=== PATIENT | male | born 1960 | race Two or more races ===

== ENCOUNTER 2024-03-07 18:20 | Inpatient (IN) | payer MEDICAID, OTHER ==
[~2024-03-07] VITALS: Ht 172.7 cm; Wt 64.0 kg
[~2024-03-07 18:20] MED LIST: METFORMIN; NORCO
[2024-03-07] MEDS ORDERED: ATOR80TA PO (18:29)
[2024-03-07] MEDS ORDERED: METF-440 PO (18:29)
[2024-03-07] MEDS ORDERED: FAMO-108 PO (18:29)
[2024-03-07] MEDS ORDERED: MIRT-93 PO (18:29)
[2024-03-07] MEDS ORDERED: TRAZ-252 PO (18:29)
[2024-03-07] MEDS ORDERED: FOLI1TAB27 PO (18:29)
[2024-03-07] MEDS ORDERED: FURO20TA4 PO (18:29)
[2024-03-07] MEDS ORDERED: CLOP75TA33 PO (18:29)
[2024-03-07] MEDS ORDERED: GABA-532 PO (18:29)
[2024-03-07 19:25] LABS: BASOPHILS # (AUTO) 0.1 K/UL (0.0-0.2); BASOPHILS % (AUTO) 1.2 % (0.0-2.0); EOSINOPHILS % (AUTO) 0.2 % (0.0-7.0); HEMOGLOBIN 11.6 g/dL (12.5-16.3); LYMPHOCYTES # (AUTO) 2.5 K/uL (0.8-4.8); LYMPHOCYTES % (AUTO) 24.9 % (20.5-51.5); MEAN CORPUSCULAR HEMOGLOBIN 27.7 uug (23.8-33.4); MEAN CORPUSCULAR HGB CONC 31 g/dL (32.5-36.3); MEAN CORPUSCULAR VOLUME 88.5 fL (73.0-96.2); MONOCYTES # (AUTO) 0.7 K/uL (0.1-1.30); MONOCYTES % (AUTO) 6.6 % (0.0-11.0); NEUTROPHILS # (AUTO) 6.8 K/uL (1.8-8.9); NEUTROPHILS % (AUTO) 67.1 % (38.5-71.5); PLATELET COUNT (AUTO) 228 K/uL (152-348); RED BLOOD CELL COUNT(AUTO) 4.19 MIL/uL (4.06-5.63); RED CELL DISTRIBUTION WIDTH 16.1 % (12.1-16.2); WHITE BLOOD COUNT (AUTO) 10.1 K/uL (3.6-10.2)
[2024-03-07] MEDS: IV NORMAL SALINE 1000 ML BAG IV ONE ×2 (19:30→21:32)
[2024-03-07 19:31] LABS: DIFFERENTIAL COMMENT 1
[2024-03-07 19:32] LABS: CALCIUM 9.8 mg/dL (8.5-10.1); CREATININE 1.1 mg/dL (0.6-1.3); POTASSIUM 4.1 mmol/L (3.5-5.1)
[2024-03-07 19:38] LABS: ALBUMIN 4.4 g/dL (3.4-5.0); BILIRUBIN,DIRECT 0.2 mg/dL (0.0-0.2); BILIRUBIN,TOTAL 0.7 mg/dL (0.2-1.0); TOTAL PROTEIN, SERUM 9.4 g/dL (6.4-8.2)
[2024-03-07] MEDS: OXYCODONE/APAP 5-325 MG TABLET PO ONE (19:48)
[2024-03-07] MEDS ORDERED: OXYCODONE/APAP 5-325 MG TABLET ONE (19:49)
[2024-03-07] MEDS ORDERED: LORAZEPAM 0.5 MG TABLET ONE (20:28)
[2024-03-07] MEDS: LORAZEPAM 0.5 MG TABLET PO ONE (20:30)
[2024-03-07] MEDS: METHADONE HCL 10 MG TABLET PO ONE (21:19)
[2024-03-07] MEDS ORDERED: IV 1/2NS 1000 ML 1,000 ML IV PRN (21:30)
[2024-03-07] MEDS ORDERED: ONDANSETRON 4 MG/2 ML VIAL IV PRN (21:30)
[2024-03-07] MEDS ORDERED: REMEDY ESSENTIAL ZINC PASTE 113 GM TP PRN (21:30)
[2024-03-07] MEDS ORDERED: ACETAMINOPHEN 325 MG TABLET PO PRN (21:30)
[2024-03-07] MEDS: METOCLOPRAMIDE HCL 10 MG/2 ML VIAL IV ONE (21:32)
[2024-03-07] MEDS: MORPHINE SULFATE 4 MG/1 ML DISP.SYRIN IV ONE (21:33)
[2024-03-08] VITALS (8 sets, daily range): BP systolic 110–136; BP diastolic 67–90; TEMP 97.6–98.1; O2SAT 95–99
[2024-03-08] MEDS: FUROSEMIDE 40 MG/4 ML VIAL IV ONE ×2 (00:07→08:33)
[2024-03-08] MEDS ORDERED: CALCIUM GLUCONATE IV 2 GM in IV DEXTROSE 5% 250 ML IV ONE (00:30)
[2024-03-08 01:51] LABS: *BILIRUBIN,URIN NEGATIVE (NEGATIVE); *BLOOD, URINE NEGATIVE (NEGATIVE); *CLARITY,URINE CLEAR (CLEAR); *COLOR,URINE YELLOW (YELLOW); *KETONES,URINE NEGATIVE (NEGATIVE); *PROTEIN,URINE NEGATIVE (NEGATIVE); *UROBILINOGEN,URINE 0.2 E.U./dl (NORMAL); LEUKOCYTE ESTERASE ,URINE NEGATIVE (NEGATIVE); NITRITE, URINE NEGATIVE (NEGATIVE); UGLUCOSE NEGATIVE (NEGATIVE)
[2024-03-08 02:30] LABS: *AMPHETAMINE, URINE NEGATIVE (NEGATIVE); *BARBITURATE, URINE NEGATIVE (NEGATIVE); *BENZODIAZEPINE, URINE NEGATIVE (NEGATIVE); *CANNABINOID, URINE NEGATIVE (NEGATIVE); *COCCAINE, URINE NEGATIVE (NEGATIVE); *OPIATE, URINE POSITIVE (NEGATIVE); *PHENCYCLIDINE SCREEN,URINE NEGATIVE (NEGATIVE); FENTANYL, URINE NEGATIVE (NEGATIVE)
[2024-03-08] MEDS: OXYCODONE/APAP 5-325 MG TABLET PO PRN (03:07)
[2024-03-08] MEDS: MORPHINE SULFATE 2 MG/1 ML DISP.SYRIN IV PRN (04:01)
[2024-03-08] MEDS: PANTOPRAZOLE SODIUM 40 MG TABLET.DR PO SCH (06:15)
[2024-03-08] MEDS: LORAZEPAM 1 MG TABLET PO PRN (06:15)
[2024-03-08] MEDS: CLOPIDOGREL 75 MG TABLET PO SCH (08:32)
[2024-03-08] MEDS: METFORMIN HCL 500 MG TABLET PO SCH (08:32)
[2024-03-08] MEDS: GABAPENTIN 100 MG CAPSULE PO SCH (08:32)
[2024-03-08] MEDS: FOLIC ACID 1 MG TABLET PO SCH (08:33)
[2024-03-08] MEDS: levoFLOXacin 750MG/D5W 750 MG in PREMIXED 1 EACH IV SCH (13:13)
[2024-03-08] MEDS ORDERED: MELA3CAP2 PO (14:34)
[2024-03-08] MEDS ORDERED: MIDO5TAB5 PO (14:34)
[2024-03-08] MEDS ORDERED: METH-815 PO (14:34)
[2024-03-08] MEDS ORDERED: LACT1TAB12 PO (14:34)
[2024-03-08] MEDS ORDERED: ZINC220T4 PO (14:34)
[2024-03-08] MEDS ORDERED: FERR325T6 PO (14:34)
[2024-03-08] MEDS ORDERED: NALO4SPR NS (14:34)
[2024-03-08] MEDS ORDERED: INSU100V SQ (14:34)
[2024-03-08] MEDS ORDERED: ACET325T53 PO (14:34)
[2024-03-08] MEDS ORDERED: SENN8.6T19 PO (14:34)
[2024-03-08] MEDS ORDERED: CHOL500062 PO (14:34)
[2024-03-08] MEDS ORDERED: ONDA4TAB5 PO (14:34)
[2024-03-08] MEDS ORDERED: LOPE2TAB25 PO (14:34)
[2024-03-08] MEDS ORDERED: MULT-594 PO (14:34)
[2024-03-08] MEDS ORDERED: NITR0.4T SL (14:34)
[2024-03-08] MEDS ORDERED: POLY17PO4 PO (14:34)
[2024-03-08] MEDS ORDERED: HYDR-894 PO (14:34)
[2024-03-08] MEDS ORDERED: ASCO500C18 PO (14:34)
[2024-03-08] MEDS ORDERED: CHLO473M5 MM (14:34)
[2024-03-08] MEDS ORDERED: BISA10SU61 RC (14:34)
[2024-03-08] MEDS: FUROSEMIDE 40 MG/4 ML VIAL IV SCH (17:09)
[2024-03-08] MEDS: MIRTAZAPINE 15 MG TABLET PO SCH (17:11)
[2024-03-08] MEDS: TRAZODONE 50 MG TABLET PO SCH (17:11)
[2024-03-08] MEDS: ATORVASTATIN 40 MG TABLET PO SCH (21:09)
[2024-03-08] MEDS: PIPERACILLIN SODIUM/TAZOBACTAM 3.375 G in IV DEXTROSE 5% 50 ML IV SCH (21:21)
[2024-03-09] VITALS (8 sets, daily range): BP systolic 94–113; BP diastolic 50–76; TEMP 97.6–98.5; O2SAT 95–98
[2024-03-09 07:09] LABS: BASOPHILS % (AUTO) 0.5 % (0.0-2.0); EOSINOPHILS # (AUTO) 0.3 K/uL (0.0-0.7); EOSINOPHILS % (AUTO) 3.3 % (0.0-7.0); HEMATOCRIT 31.9 % (36.7-47.1); HEMOGLOBIN 10.5 g/dL (12.5-16.3); LYMPHOCYTES # (AUTO) 2.6 K/uL (0.8-4.8); LYMPHOCYTES % (AUTO) 28.5 % (20.5-51.5); MEAN CORPUSCULAR HEMOGLOBIN 28.5 uug (23.8-33.4); MEAN CORPUSCULAR HGB CONC 33 g/dL (32.5-36.3); MEAN CORPUSCULAR VOLUME 86.7 fL (73.0-96.2); MONOCYTES # (AUTO) 0.6 K/uL (0.1-1.30); MONOCYTES % (AUTO) 6.5 % (0.0-11.0); NEUTROPHILS # (AUTO) 5.5 K/uL (1.8-8.9); NEUTROPHILS % (AUTO) 61.2 % (38.5-71.5); PLATELET COUNT (AUTO) 210 K/uL (152-348); RED BLOOD CELL COUNT(AUTO) 3.68 MIL/uL (4.06-5.63); RED CELL DISTRIBUTION WIDTH 16.1 % (12.1-16.2)
[2024-03-09 07:17] LABS: DIFFERENTIAL COMMENT 1
[2024-03-09 07:20] LABS: CALCIUM 8.5 mg/dL (8.5-10.1); MAGNESIUM 1.7 mg/dL (1.8-2.4); PHOSPHOROUS 3.5 mg/dL (2.5-4.9); POTASSIUM 3.1 mmol/L (3.5-5.1)
[2024-03-09] MEDS ORDERED: POTASSIUM CHLORIDE 20 MEQ POWDER PACKET GT ONE (09:30)
[2024-03-09] MEDS: POTASSIUM CHLORIDE 20 MEQ POWDER PACKET PO ONE (10:16)
[2024-03-09] MEDS: SPIRONOLACTONE 25 MG TABLET PO SCH (10:18)
[2024-03-09] MEDS: POTASSIUM CHLORIDE 50 ML IV SCH (10:20)
[2024-03-09] MEDS: MAGNESIUM OXIDE 400 MG TABLET PO ONE (13:45)
[2024-03-10] VITALS (9 sets, daily range): BP systolic 94–109; BP diastolic 61–80; TEMP 97.7–98.8; O2SAT 95–100
[2024-03-10] MEDS: PIPERACILLIN SODIUM/TAZOBACTAM 3.375 G in IV DEXTROSE 5% 100 ML IV SCH (21:12)
[2024-03-11 07:27] VITALS: BP 113/80; TEMP 98.2; O2SAT 98
[2024-03-11 07:34] LABS: BASOPHILS # (AUTO) 0.1 K/UL (0.0-0.2); BASOPHILS % (AUTO) 0.9 % (0.0-2.0); EOSINOPHILS # (AUTO) 0.4 K/uL (0.0-0.7); EOSINOPHILS % (AUTO) 4.7 % (0.0-7.0); HEMATOCRIT 39.1 % (36.7-47.1); HEMOGLOBIN 12.6 g/dL (12.5-16.3); LYMPHOCYTES # (AUTO) 2.7 K/uL (0.8-4.8); LYMPHOCYTES % (AUTO) 29.4 % (20.5-51.5); MEAN CORPUSCULAR HEMOGLOBIN 27.7 uug (23.8-33.4); MEAN CORPUSCULAR HGB CONC 32 g/dL (32.5-36.3); MEAN CORPUSCULAR VOLUME 86.3 fL (73.0-96.2); MONOCYTES # (AUTO) 0.7 K/uL (0.1-1.30); MONOCYTES % (AUTO) 7.6 % (0.0-11.0); NEUTROPHILS # (AUTO) 5.3 K/uL (1.8-8.9); NEUTROPHILS % (AUTO) 57.4 % (38.5-71.5); PLATELET COUNT (AUTO) 250 K/uL (152-348); RED BLOOD CELL COUNT(AUTO) 4.54 MIL/uL (4.06-5.63); RED CELL DISTRIBUTION WIDTH 15.8 % (12.1-16.2); WHITE BLOOD COUNT (AUTO) 9.3 K/uL (3.6-10.2)
[2024-03-11 07:58] LABS: DIFFERENTIAL COMMENT 1
[2024-03-11 08:02] LABS: CALCIUM 9.3 mg/dL (8.5-10.1); CREATININE 0.8 mg/dL (0.6-1.3); MAGNESIUM 1.6 mg/dL (1.8-2.4); PHOSPHOROUS 4.5 mg/dL (2.5-4.9)
[2024-03-11 08:06] LABS: POTASSIUM 3.6 mmol/L (3.5-5.1)
[2024-03-11 11:17] VITALS: BP 95/64; TEMP 98; O2SAT 97
[2024-03-11] MEDS: MAGNESIUM OXIDE 400 MG TABLET PO ONE (13:40)
[2024-03-11] MEDS: HYDROCODONE/APAP 5-325MG TABLET PO PRN (13:45)
[2024-03-11 15:17] VITALS: BP 100/70; TEMP 97.3; O2SAT 97
[2024-03-11 20:00] VITALS: BP 109/71; TEMP 98.3; O2SAT 98
[2024-03-11 20:28] VITALS: O2SAT 96
[2024-03-12] VITALS: BP 96/65; TEMP 97.2; O2SAT 95
[2024-03-12 06:10] VITALS: BP 105/72; TEMP 98.6; O2SAT 97
[2024-03-12 08:08] VITALS: BP 110/70; TEMP 98.7; O2SAT 98
[2024-03-12 11:50] VITALS: BP 102/64; TEMP 97.8; O2SAT 98
[2024-03-12] MEDS ORDERED: FURO-151 PO (14:00)
[2024-03-12 14:03] VITALS: O2SAT 98
[2024-03-12 15:34] VITALS: BP 95/62; TEMP 97.7; O2SAT 97
[2024-03-12] MEDS ORDERED: HYDR-3980 PO (17:01)
[2024-03-14 22:36] VITALS: O2SAT 95; O2SAT 98
== END 2024-03-12 17:30 | disposition home or self-care (01) | DRG 194 ==
LOC: ER 18:21 → TELE3 21:15 → MEDSURG3 03-12 10:25
PROVIDERS: ADMIT Nurse Practitioner Family
PROC: 05HB33Z Insertion of Infusion Device into Right Basilic Vein, Percutaneous Approach (ICD-10-PCS; principal; 2024-03-10)
DX: I11.0 Hypertensive heart disease with heart failure (principal); J96.01 Acute respiratory failure with hypoxia; I21.4 Non-ST elevation (NSTEMI) myocardial infarction; I42.7 Cardiomyopathy due to drug and external agent; E86.0 Dehydration; Z95.1 Presence of aortocoronary bypass graft; I50.23 Acute on chronic systolic (congestive) heart failure; F11.20 Opioid dependence, uncomplicated; I25.10 Atherosclerotic heart disease of native coronary artery without angina pectoris; F15.91 Other stimulant use, unspecified, in remission; R55 Syncope and collapse; I25.5 Ischemic cardiomyopathy; R20.2 Paresthesia of skin; G89.29 Other chronic pain; Z79.02 Long term (current) use of antithrombotics/antiplatelets; Z79.4 Long term (current) use of insulin; E11.9 Type 2 diabetes mellitus without complications; E78.5 Hyperlipidemia, unspecified; Z88.6 Allergy status to analgesic agent; Z79.899 Other long term (current) drug therapy; F32.A Depression, unspecified; K21.9 Gastro-esophageal reflux disease without esophagitis; Z79.84 Long term (current) use of oral hypoglycemic drugs
CPT/HCPCS: 36415; 71045; 83735; 84100; 84484; 85025; 93005; 93307; G0378; J0610; J1940; J1956; J2270; J2543; J2765; J3480; J7040; J7050

== ENCOUNTER 2024-03-16 05:39 | Emergency (ER) | payer MEDICAID ==
[~2024-03-16] VITALS: Ht 172.7 cm; Wt 65.8 kg
[~2024-03-16 05:39] MED LIST changes: +ACET325T53 PO; +ASCO500C18 PO; +ATOR80TA PO; +BISA10SU61 RC; +CHLO473M5 MM; +CHOL500062 PO; +CLOP75TA33 PO; +FAMO-108 PO; +FERR325T6 PO; +FOLI1TAB27 PO; +FURO-151 PO; +GABA-532 PO; +HYDR-894 PO; +INSU100V SQ; +LACT1TAB12 PO; +LOPE2TAB25 PO; +MELA3CAP2 PO; +METF-440 PO; -METFORMIN; +MIDO5TAB5 PO; +MIRT-93 PO; +MULT-594 PO; +NALO4SPR NS; +NITR0.4T SL; -NORCO; +ONDA4TAB5 PO; +POLY17PO4 PO; +SENN8.6T19 PO; +TRAZ-252 PO; +ZINC220T4 PO
[2024-03-16] MEDS ORDERED: METOPROLOL TARTRATE 5 MG/5 ML VIAL IVP ONE ×2 (06:00→06:03)
[2024-03-16] MEDS: IV NORMAL SALINE 1000 ML BAG IV ONE (06:00)
[2024-03-16] MEDS: LABETALOL HCL 100 MG/20 ML VIAL IV ONE (06:15)
[2024-03-16 07:37] LABS: AMMONIA 12 umol/L (11-32)
[2024-03-16 07:39] LABS: BASOPHILS # (AUTO) 0.1 K/UL (0.0-0.2); BASOPHILS % (AUTO) 1.2 % (0.0-2.0); DIFFERENTIAL COMMENT 0; EOSINOPHILS # (AUTO) 0.1 K/uL (0.0-0.7); EOSINOPHILS % (AUTO) 0.9 % (0.0-7.0); HEMOGLOBIN 10.8 g/dL (12.5-16.3); LYMPHOCYTES # (AUTO) 1.8 K/uL (0.8-4.8); LYMPHOCYTES % (AUTO) 19.8 % (20.5-51.5); MEAN CORPUSCULAR HEMOGLOBIN 28.1 uug (23.8-33.4); MEAN CORPUSCULAR HGB CONC 33 g/dL (32.5-36.3); MEAN CORPUSCULAR VOLUME 85.8 fL (73.0-96.2); MONOCYTES # (AUTO) 0.7 K/uL (0.1-1.30); MONOCYTES % (AUTO) 7.1 % (0.0-11.0); NEUTROPHILS # (AUTO) 6.5 K/uL (1.8-8.9); PLATELET COUNT (AUTO) 183 K/uL (152-348); RED BLOOD CELL COUNT(AUTO) 3.84 MIL/uL (4.06-5.63); RED CELL DISTRIBUTION WIDTH 15.6 % (12.1-16.2); WHITE BLOOD COUNT (AUTO) 9.2 K/uL (3.6-10.2)
[2024-03-16 07:44] LABS: ACETAMINOPHEN < 2.0 ug/mL (10-30)
[2024-03-16 07:47] LABS: ETHANOL < 3 MG/DL (0-10)
[2024-03-16 07:56] LABS: CALCIUM 9.3 mg/dL (8.5-10.1); CARBON DIOXIDE 27 mmol/L (21-32); CHLORIDE 97 mmol/L (98-107); CREATININE 1.2 mg/dL (0.6-1.3); GLUCOSE 215 mg/dL (74-106); POTASSIUM 3.8 mmol/L (3.5-5.1); SODIUM SERUM 134 mmol/L (136-145); UREA NITROGEN, BLOOD 31 mg/dL (7-18)
[2024-03-16 08:02] LABS: *BILIRUBIN,URIN NEGATIVE (NEGATIVE); *BLOOD, URINE NEGATIVE (NEGATIVE); *CLARITY,URINE CLEAR (CLEAR); *COLOR,URINE YELLOW (YELLOW); *KETONES,URINE TRACE (NEGATIVE); *PROTEIN,URINE 2+ (NEGATIVE); *UROBILINOGEN,URINE 0.2 E.U./dl (NORMAL); LEUKOCYTE ESTERASE ,URINE NEGATIVE (NEGATIVE); NITRITE, URINE NEGATIVE (NEGATIVE); PH,URINE 5.5 (5.0-8.0); UGLUCOSE NEGATIVE (NEGATIVE)
[2024-03-16 08:09] LABS: ALANINE AMINOTRANSFERASE 28 U/L (16-63); ALBUMIN 3.6 g/dL (3.4-5.0); ALKALINE PHOSPHATASE 82 U/L (50-136); ASPARTATE AMINOTRANSFERASE 22 U/L (15-37); BILIRUBIN,DIRECT 0.3 mg/dL (0.0-0.2); BILIRUBIN,TOTAL 0.7 mg/dL (0.2-1.0); NT-PRO BNP 18792 pg/mL (0-125)
[2024-03-16 08:14] LABS: *AMPHETAMINE, URINE POSITIVE (NEGATIVE); *BARBITURATE, URINE NEGATIVE (NEGATIVE); *BENZODIAZEPINE, URINE NEGATIVE (NEGATIVE); *CANNABINOID, URINE NEGATIVE (NEGATIVE); *COCCAINE, URINE NEGATIVE (NEGATIVE); *OPIATE, URINE POSITIVE (NEGATIVE); *PHENCYCLIDINE SCREEN,URINE NEGATIVE (NEGATIVE); FENTANYL, URINE POSITIVE (NEGATIVE)
[2024-03-16] MEDS ORDERED: REMEDY ESSENTIAL ZINC PASTE 113 GM TP PRN (10:00)
[2024-03-16] MEDS ORDERED: DEXTROSE 50% 50 ML DISP.SYRIN IV PRN (10:00)
[2024-03-16] MEDS ORDERED: MAGNESIUM HYDROXIDE 30 ML LIQUID UDC PO PRN (10:00)
[2024-03-16] MEDS ORDERED: ACETAMINOPHEN 325 MG TABLET PO PRN (10:00)
[2024-03-16] MEDS ORDERED: INSULIN REGULAR, HUMAN 300 UNITS/3 ML VIAL SQ PRN (10:00)
[2024-03-16] MEDS ORDERED: Medication Not On Formulary EA (Melatonin 3 MG) PO PRN (10:00)
[2024-03-16] MEDS ORDERED: ONDANSETRON 4 MG/2 ML VIAL IV PRN (10:00)
[2024-03-16] MEDS ORDERED: ONDANSETRON 4 MG/2 ML VIAL ONE (10:06)
[2024-03-16] MEDS ORDERED: MORPHINE SULFATE 4 MG/1 ML DISP.SYRIN ONE (10:06)
[2024-03-16] MEDS: FUROSEMIDE 40 MG/4 ML VIAL IV ONE (10:12)
[2024-03-16] MEDS: ONDANSETRON 4 MG/2 ML VIAL IV ONE (10:13)
[2024-03-16] MEDS: MORPHINE SULFATE 4 MG/1 ML DISP.SYRIN IV ONE (10:13)
[2024-03-16] MEDS ORDERED: diphenhydrAMINE 50 MG/1 ML VIAL ONE (10:36)
[2024-03-16] MEDS: diphenhydrAMINE 50 MG/1 ML VIAL IV ONE (10:39)
[2024-03-16] MEDS ORDERED: IOHEXOL 350 100 ML INFUS..BTL ONE (11:36)
[2024-03-16] MEDS ORDERED: IV NORMAL SALINE 250 ML IV ONE (11:36)
[2024-03-16] MEDS ORDERED: SWABABLE VALVE TRANSFER SET EA MC ONE (11:36)
[2024-03-16] MEDS: BLOOD SUGAR DIAGNOSTIC 1 EACH STRIP VI SCH (12:26)
[2024-03-16] MEDS: INSULIN REGULAR, HUMAN 1000 UNIT/10 ML VIAL SQ PRN (12:28)
[2024-03-16] MEDS ORDERED: INSULIN REGULAR, HUMAN 1000 UNIT/10 ML VIAL ONE (12:30)
[2024-03-16] MEDS: GABAPENTIN 100 MG CAPSULE PO SCH (14:35)
[2024-03-16 15:13] LABS: BACTERIA,URINE FEW /HPF (NONE SEEN); RBC,URINE 0-3 /HPF (0-3); SQUAMOUS EPITHELIAL CELL,UR FEW /HPF (NONE SEEN); WBC,URINE 0-3 /HPF (0-3)
[2024-03-16] MEDS ORDERED: MELATONIN 3 MG TABLET PO PRN (15:30)
[2024-03-16] MEDS ORDERED: ASCORBIC ACID 500 MG TABLET PO SCH (17:00)
[2024-03-16] MEDS ORDERED: Medication Not On Formulary EA (Ascorbic Acid (Vitamin C) 500 MG) PO SCH (17:00)
[2024-03-16 17:39] VITALS: BP 106/64; TEMP 98.3; O2SAT 95
[2024-03-16] MEDS ORDERED: ATORVASTATIN 40 MG TABLET PO SCH (21:00)
[2024-03-16] MEDS ORDERED: TRAZODONE 50 MG TABLET PO SCH (21:00)
[2024-03-16] MEDS ORDERED: MIRTAZAPINE 15 MG TABLET PO SCH (21:00)
[2024-03-16] MEDS ORDERED: Medication Not On Formulary EA (Atorvastatin Calcium (Lipitor) 80 MG) PO SCH (21:00)
[2024-03-17] MEDS ORDERED: CHOLECALCIFEROL 1,000 UNIT TABLET PO SCH (09:00)
[2024-03-17] MEDS ORDERED: Medication Not On Formulary EA (Lactobacillus Acidophilus (Acidophilus) 1 TAB) PO SCH (09:00)
[2024-03-17] MEDS ORDERED: MIRALAX 17 GM POWD.PACK PO SCH (09:00)
[2024-03-17] MEDS ORDERED: ZINC SULFATE 220 MG CAPSULE PO SCH (09:00)
[2024-03-17] MEDS ORDERED: Medication Not On Formulary EA (Multivitamins (Multivitamin) 1 TAB) PO SCH (09:00)
[2024-03-17] MEDS ORDERED: Medication Not On Formulary EA (Cholecalciferol (Vitamin D3) (Vitamin D3) 5,000 UNIT) PO SCH (09:00)
[2024-03-17] MEDS ORDERED: Medication Not On Formulary EA (Ferrous Sulfate 325 MG) PO SCH (09:00)
[2024-03-17] MEDS ORDERED: FAMOTIDINE 20 MG TABLET PO SCH (09:00)
[2024-03-17] MEDS ORDERED: ACIDOPHILUS/BULGARICUS CHEW TAB PO SCH (09:00)
[2024-03-17] MEDS ORDERED: MULTIVITAMINS,THERAPEUTIC TABLET PO SCH (09:00)
[2024-03-17] MEDS ORDERED: SENNOSIDES 1 TABLET PO SCH (09:00)
[2024-03-17] MEDS ORDERED: FOLIC ACID 1 MG TABLET PO SCH (09:00)
[2024-03-17] MEDS ORDERED: CLOPIDOGREL 75 MG TABLET PO SCH (09:00)
[2024-03-17] MEDS ORDERED: FERROUS SULFATE 325 MG TABEC PO SCH (09:00)
== END 2024-03-16 17:41 | disposition left against medical advice (07) ==
LOC: ER 05:40
DX: T50.901A Poisoning by unspecified drugs, medicaments and biological substances, accidental (unintentional), initial encounter (principal); I21.A1 Myocardial infarction type 2; I50.9 Heart failure, unspecified; F19.10 Other psychoactive substance abuse, uncomplicated; J44.1 Chronic obstructive pulmonary disease with (acute) exacerbation; K21.9 Gastro-esophageal reflux disease without esophagitis; E11.9 Type 2 diabetes mellitus without complications; Z98.890 Other specified postprocedural states; Z79.899 Other long term (current) drug therapy; Z79.1 Long term (current) use of non-steroidal anti-inflammatories (NSAID); Z79.84 Long term (current) use of oral hypoglycemic drugs; Z20.822 Contact with and (suspected) exposure to COVID-19; Z88.1 Allergy status to other antibiotic agents; Y92.89 Other specified places as the place of occurrence of the external cause
CPT/HCPCS: 80076; 80048; 81001; 82140; 82962 ×2; 83880; 85025; 85379; 85730; 87426; 87040 ×2; 84484 ×3; 36415; 93005; 71045; 73020 ×2; 71275; 93971; 99291; 96361; 96374; 96375; 96372; 83605 ×2; 87086; 80299; 80320; 80307; J1200; J1940; J3490; J2405; Q9967; J2270; J1815; J7040 ×3; A4606; A4663; G0480

== ENCOUNTER 2024-06-15 13:32 | Emergency (ER) | payer MEDICAID ==
[~2024-06-15] VITALS: Ht 175.3 cm; Wt 65.8 kg
[2024-06-15] MEDS ORDERED: HYDROMORPHONE 1 MG/1 ML DISP.SYRIN ONE (15:55)
[2024-06-15] MEDS ORDERED: ONDANSETRON ODT 4 MG TAB.RAPDIS ONE (15:55)
[2024-06-15] MEDS ORDERED: HYDROMORPHONE 2 MG/1 ML DISP.SYRIN ONE (15:55)
[2024-06-15] MEDS: ONDANSETRON ODT 4 MG TAB.RAPDIS SL ONE (15:59)
[2024-06-15] MEDS: HYDROMORPHONE 1 MG/1 ML DISP.SYRIN IM ONE (15:59)
[2024-06-15] MEDS ORDERED: SILVER SULFADIAZINE 1% CREAM 50 GM TP ONE (16:09)
[2024-06-15] MEDS: SILVER SULFADIAZINE 1% CREAM 50 GM TP ONE (16:17)
[2024-06-15 17:07] LABS: CREATININE 1.2 mg/dL (0.6-1.3)
[2024-06-15 17:09] LABS: MAGNESIUM 1.7 mg/dL (1.8-2.4)
[2024-06-15] MEDS: IV NS 1000 ML 1,000 ML IV ONE ×2 (20:54→21:53)
[2024-06-15] MEDS ORDERED: OXYCODONE HCL 5 MG TABLET ONE (20:55)
[2024-06-15] MEDS: OXYCODONE HCL 5 MG TABLET PO ONE (20:57)
[2024-06-15] MEDS ORDERED: MAGNESIUM SULFATE/D5W 200 ML ONE (21:52)
[2024-06-15] MEDS: MAGNESIUM SULFATE/D5W 100 ML IV SCH (21:57)
[2024-06-15 22:34] LABS: BASOPHILS # (AUTO) 0.1 K/UL (0.0-0.2); BASOPHILS % (AUTO) 0.7 % (0.0-2.0); EOSINOPHILS % (AUTO) 0.4 % (0.0-7.0); HEMATOCRIT 37.2 % (36.7-47.1); LYMPHOCYTES # (AUTO) 1.4 K/uL (0.8-4.8); LYMPHOCYTES % (AUTO) 15.1 % (20.5-51.5); MEAN CORPUSCULAR HEMOGLOBIN 27.4 uug (23.8-33.4); MEAN CORPUSCULAR HGB CONC 32 g/dL (32.5-36.3); MONOCYTES # (AUTO) 1.1 K/uL (0.1-1.30); MONOCYTES % (AUTO) 11.5 % (0.0-11.0); NEUTROPHILS # (AUTO) 6.9 K/uL (1.8-8.9); NEUTROPHILS % (AUTO) 72.3 % (38.5-71.5); PLATELET COUNT (AUTO) 234 K/uL (152-348); RED BLOOD CELL COUNT(AUTO) 4.38 MIL/uL (4.06-5.63); RED CELL DISTRIBUTION WIDTH 19.2 % (12.1-16.2); WHITE BLOOD COUNT (AUTO) 9.5 K/uL (3.6-10.2)
[2024-06-15 23:08] LABS: ERYTHROCYTE SEDIMENTATION RATE 12 MM/HR (0-15)
[2024-06-16 00:30] VITALS: O2SAT 94
== END 2024-06-16 01:34 | disposition short-term general hospital (02) ==
LOC: ER 13:32
DX: E86.0 Dehydration (principal); L98.491 Non-pressure chronic ulcer of skin of other sites limited to breakdown of skin; R94.4 Abnormal results of kidney function studies; E11.9 Type 2 diabetes mellitus without complications; I50.9 Heart failure, unspecified; J44.9 Chronic obstructive pulmonary disease, unspecified; K21.9 Gastro-esophageal reflux disease without esophagitis; Z59.00 Homelessness unspecified; Z79.02 Long term (current) use of antithrombotics/antiplatelets; Z79.84 Long term (current) use of oral hypoglycemic drugs; Z79.899 Other long term (current) drug therapy; Z20.822 Contact with and (suspected) exposure to COVID-19; Z95.1 Presence of aortocoronary bypass graft; Z99.3 Dependence on wheelchair; Z88.6 Allergy status to analgesic agent; Z88.7 Allergy status to serum and vaccine; V29.99XA Rider (driver) (passenger) of other motorcycle injured in unspecified traffic accident, initial encounter; Y93.89 Activity, other specified; Y92.89 Other specified places as the place of occurrence of the external cause; Y99.8 Other external cause status
CPT/HCPCS: 99285; 96365; 96361; 96366; 87426; 80048; 83735; 85025; 85651; 36415; 96372; 98960; J3475; J1171 ×2; J7040 ×2; A4606; A4663; Q0162